=== PATIENT | male | born 1960 | race Caucasian/White ===

== ENCOUNTER → 2016-11-05 | Outpatient (CLI) | payer BC ==
--- NOTE | 2016-11-05 13:38 | DIAGNOSTIC IMAGING REPORT ---
RIGHT SHOULDER MIN 2 VIEWS CLINICAL HISTORY: RIGHT SHOULDER PAIN Right COMPARISON: None. DISCUSSION: Mild degenerative change right acromioclavicular joint. Very subtle Hill-Sachs type deformity considered nonacute. Glenohumeral joint is otherwise unremarkable. There is no evidence for soft tissue swelling. IMPRESSION: Mild degenerative change. No acute process. Electronically signed by: Skip Madera M.D. 11/05/2016 1:36 PM Dictated Date/Time: 11/05/2016 1:35 PM
== END | disposition home or self-care (01) ==
LOC: C.RDSM 15:09
PROVIDERS: ATTEND Family Medicine
DX: M25.511 Pain in right shoulder (principal)